=== PATIENT | male | born 1955 | race Caucasian/White ===

== ENCOUNTER 2017-05-19 09:57 | Emergency (ER) | payer BC ==
--- NOTE | 2017-05-19 10:20 | ERPHSYRPT ---
- History of Present Illness Time Seen by Provider: 05/19/17 10:15 Source: patient, family Exam Limitations: no limitations Physician History: The patient is a 61-year-old male with his complaining that over the last 4 days he has had 3 episodes lasting about 20-30 minutes each of feeling weak in the legs, shortness of breath, and chest heaviness. He denies any specific pain. The patient takes 9 tablets of 325 mg aspirin daily for "inflammation. This morning the patient has already taken 3 tablets of 325 mg aspirin. He denies nausea, vomiting, or diarrhea. During these episodes and after the episodes he complains of pain in his left neck near his ear. He's had these episodes from time to time over the last several years, but has ignored them. He is now concerned because he had to on Friday and one this morning. He says after the episode he "doesn't feel right". He is currently beginning to feel better after the episode this morning. He states he had sinus drainage for the past several weeks and is wondering if this is due to chest inflammation. He denies cough. When the patient was in his 30s, he was diagnosed with pericarditis twice. He felt very similar at that time as he feels currently. 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 His past medical history is significant for CABG, pericarditis, hypertension, and high cholesterol area. His payroll accounting manager is Dr Kirkpatrick. Timing/Duration: day(s) (4) Severity: moderate Modifying Factors: Improves With: nothing Associated Symptoms: shortness of breath, weakness Allergies/Adverse Reactions: No Known Drug Allergies Allergy (Unverified 05/19/17 10:22) Home Medications: Amlodipine Besylate/Benazepril [Amlodipine-Benazepril 10-40 mg] 1 ea DAILY 05/19 [History] Aspirin EC 325 mg [Ecotrin 325 MG] 325 mg DAILY 05/19/17 [History] Atorvastatin Calcium 40 mg DAILY 05/19/17 [History] Hydrochlorothiazide [Hydrochlorothiazide] 25 mg DAILY 05/19/17 [History] - Review of Systems Constitutional: Weakness Eyes: No Symptoms Ears, Nose, & Throat: Sinus Drainage Respiratory: Dyspnea, No Cough Cardiac: Chest Pain Abdominal/Gastrointestinal: No Abdominal Pain, No Nausea, No Vomiting, No Diarrhea Genitourinary Symptoms: No Dysuria Musculoskeletal: No Back Pain, No Neck Pain Skin: No Rash Neurological: No Dizziness, No Focal Weakness, No Sensory Changes Psychological: No Symptoms Endocrine: No Symptoms Hematologic/Lymphatic: No Symptoms Immunological/Allergic: No Symptoms All Other Systems: Reviewed and Negative - Nursing Vital Signs Nursing Vital Signs: Initial Vital Signs Temperature 97.3 F 05/19/17 10:04 Pulse Rate 65 05/19/17 10:04 Respiratory Rate 16 05/19/17 10:04 Blood Pressure 160/109 05/19/17 10:04 O2 Sat by Pulse Oximetry 94 L 05/19/17 10:04 Pain Scale Pain Intensity 2 - Physical Exam General Appearance: no apparent distress, alert Eye Exam: PERRL/EOMI, eyes nml inspection Ears, Nose, Throat Exam: normal ENT inspection, TMs normal, pharynx normal, moist mucous membranes Neck Exam: normal inspection, non-tender, supple, full range of motion Respiratory Exam: normal breath sounds, lungs clear, No respiratory distress Cardiovascular Exam: regular rate/rhythm, normal heart sounds, normal peripheral pulses, No friction rub Gastrointestinal/Abdomen Exam: soft, normal bowel sounds, other (obese), No tenderness, No mass Rectal Exam: deferred Back Exam: normal inspection, normal range of motion, No CVA tenderness, No vertebral tenderness Extremity Exam: normal inspection, normal range of motion, pelvis stable Neurologic Exam: alert, oriented x 3, cooperative, normal mood/affect, nml cerebellar function, nml station & gait, sensation nml, No motor deficits Skin Exam: normal color, warm, dry, No rash Lymphatic Exam: No adenopathy SpO2 Interpretation: normal - Course EKG Interpreted by Me: RATE, Sinus Rhythm, Sinus Kirit, NORMAL AXIS, NORMAL INTERVALS, NORMAL QRS, NORMAL ST-T - Radiology Exams Chest X-ray Interpretation: Reviewed by me, Teleradiologist Report, Negative (per DR Rodriguez) Ordered Tests: Active Orders 24 hr Category Date Time Status Milk Condenser STAT Care 05/19/17 10:22 Active EKG-ER Only STAT Care 05/19/17 10:21 Active IV Insertion STAT Care 05/19/17 10:21 Active CHEST 2 VIEWS (PA AND LAT) Stat Exams 05/19/17 10:22 Completed CBC W DIFF Stat Lab 05/19/17 10:34 Completed CMP Routine Lab 05/19/17 10:34 Completed D-DIMER QUANTITATION Stat Lab 05/19/17 10:34 Completed NT PRO BNP Routine Lab 05/19/17 10:34 Completed PROTIME WITH INR Stat Lab 05/19/17 10:34 Completed PTT Stat Lab 05/19/17 10:34 Completed TROPONIN Q3H Lab 05/19/17 10:34 Completed TROPONIN Q3H Lab 05/19/17 13:30 Ordered TROPONIN Q3H Lab 05/19/17 16:30 Ordered TROPONIN Q3H Lab 05/19/17 19:30 Ordered TROPONIN Q3H Lab 05/19/17 22:30 Ordered Lab/Rad Data: Laboratory Result Diagrams 05/19/17 10:34 05/19/17 10:34 Laboratory Results 05/19/17 05/19/17 05/19/17 Range/Units 10:34 10:34 10:34 WBC 6.1 (4.0-10.5) K/mm3 RBC 5.75 H (4.1-5.6) M/mm3 Hgb 15.6 (12.5-18.0) gm/dl Hct 47.2 (42-50) % MCV 82.1 (78-100) fl MCH 27.1 (26-32) pg MCHC 33.1 (32-36) g/dl RDW 13.5 (11.5-14.0) % Plt Count 249 (150-450) K/mm3 MPV 10.7 H (6-9.5) fl Gran % 66.9 H (36.0-66.0) % Lymphocytes % 23.2 L (24.0-44.0) % Monocytes % 8.5 (0.0-12.0) % Eosinophils % 1.1 (0.00-5.0) % Basophils % 0.3 (0.0-0.4) % Basophils # 0.02 (0-0.4) INR 1.00 (0.8-3.0) APTT 32.6 (24.1-36.1) SECONDS D-Dimer 329.88 (0-500) ng/mL Sodium 140 (136-145) mEq/L Potassium 3.7 (3.5-5.1) mEq/L Chloride 103 (98-107) mEq/L Carbon Dioxide 27.6 (21-32) mEq/L Anion Gap 13.3 (5-15) MEQ/L BUN 19 (9-20) mg/dL Creatinine 1.16 (0.55-1.30) mg/dl Estimated GFR > 60 ML/MIN Glucose 106 (70-110) MG/DL Calcium 9.7 (8.5-10.1) mg/dL Total Bilirubin 0.50 (0.2-1.0) mg/dL AST 25 (15-37) U/L ALT 41 (12-78) U/L Alkaline Phosphatase 73 (46-116) U/L Troponin I < 0.017 (0.000-0.056) ng/ml NT-Pro-B Natriuret Pep 20 (0-125) pg/ml Serum Total Protein 8.0 (6.4-8.2) gm/dL Albumin 4.1 (3.4-5.0) g/dL - Progress Progress: improved Discussed with : Rosalie Counseled pt/family regarding: lab results, diagnosis, need for follow-up, rad results - Departure Time of Disposition: 12:30 Departure Disposition: Home Clinical Impression: Weakness Condition: Stable Critical Care Time: No Referrals: ROVERTO RUTH MD [Primary Care Provider] - Additional Instructions: You have intermittent leg weakness and shortness of breath. At this time we do not know the cause. All of your laboratory testing and imaging studies have been normal. Please reduce your aspirin intake to one aspirin a day. Take 2 tablets of Aleve twice a day as needed. Call Dr. Ruth for a follow-up appointment on Friday in the [place] office.
[2017-05-19 10:40] LABS: BASOPHIL % 0.3 % (0.0-0.4); Basophil (Absolute #) 0.02 (0-0.4); Eosinophil % 1.1 % (0.00-5.0); Eosinophil (Absolute #) 0.07 (0-0.5); Granulocytes % 66.9 % (36.0-66.0); Hematocrit 47.2 % (42-50); Hemoglobin 15.6 gm/dl (12.5-18.0); Lymphocyte (Absolute #) 1.42 (1.0-4.6); Lymphocytes % 23.2 % (24.0-44.0); Mean Cell Volume 82.1 fl (78-100); Mean Corpuscular Hemoglobin 27.1 pg (26-32); Mean Corpuscular Hgb Concent. 33.1 g/dl (32-36); Mean Platelet Volume 10.7 fl (6-9.5); Monocyte (Absolute #) 0.52 (0.0-1.3); Monocytes % 8.5 % (0.0-12.0); Platelet Count 249 K/mm3 (150-450); Red Blood Count 5.75 M/mm3 (4.1-5.6); Red Cell Distribution Width 13.5 % (11.5-14.0); White Blood Count 6.1 K/mm3 (4.0-10.5)
[2017-05-19 11:13] LABS: ALBUMIN 4.1 g/dL (3.4-5.0); ALKALINE PHOSPHATASE 73 U/L (46-116); ANION GAP 13.3 MEQ/L (5-15); BLOOD UREA NITROGEN 19 mg/dL (9-20); CHLORIDE 103 mEq/L (98-107); Calcium 9.7 mg/dL (8.5-10.1); Carbon Dioxide 27.6 mEq/L (21-32); Creatinine 1 1.16 mg/dl (0.55-1.30); EST GLOMERULAR FILTRATION RATE > 60 ML/MIN; Glucose 106 MG/DL (70-110); NT PRO BNP 20 pg/ml (0-125); Potassium 3.7 mEq/L (3.5-5.1); SGOT/AST 25 U/L (15-37); SGPT/ALT 41 U/L (12-78); SODIUM 140 mEq/L (136-145); TROPONIN < 0.017 ng/ml (0.000-0.056)
--- NOTE | 2017-05-19 11:14 | XRAY ---
Indication: Short of breath. Comparison: July 11, 2011. PA/lateral chest again hyperinflated and clear. Heart is not enlarged and demonstrates interval CABG surgery. Bony thorax intact with minimal degenerative changes. Impression: Nonacute hyperinflated chest with chronic features.
[2017-05-19 11:15] LABS: D-DIMER QUANTITATION 329.88 ng/mL (0-500)
[2017-05-19 11:16] LABS: PTT 32.6 SECONDS (24.1-36.1)
[2017-05-19 11:59] VITALS: O2SAT 98
[2017-05-19 12:43] VITALS: BP 154/106; PULSE 78
== END 2017-05-19 12:43 | disposition home or self-care (01) ==
LOC: ED 09:57
DX: R53.1 Weakness (principal)
CPT/HCPCS: 36000; 36415; 71046; 80053; 83880; 84484; 85025; 85379; 85610; 85730; 93005; 93041; 99284